=== PATIENT | female | born 1980 | race Caucasian/White ===

== ENCOUNTER 2016-06-15 12:59 | Emergency (ER) | payer MEDICARE, MEDICAID | END 2016-06-15 14:10 | disposition left against medical advice (07) | DX: R30.0 Dysuria (principal); Z53.21 Procedure and treatment not carried out due to patient leaving prior to being seen by health care provider ==

== ENCOUNTER 2016-06-15 14:36 | Emergency (ER) | payer MEDICARE, MEDICAID ==
[2016-06-15] MEDS ORDERED: NAPROXEN 250 MG TABLET PO STA (16:03)
[2016-06-15] MEDS ORDERED: metroNIDAZOLE 250 MG TABLET PO STA (16:03)
[2016-06-15] MEDS ORDERED: PHENAZOPYRIDINE 100 MG TABLET PO STA (16:03)
[2016-06-15] MEDS ORDERED: traMADol 50 MG TABLET PO STA (16:04)
[2016-06-15] MEDS ORDERED: traMADol 50 MG TABLET PO ONE (16:10)
[2016-06-15] MEDS ORDERED: NAPROXEN 250 MG TABLET PO ONE (16:11)
[2016-06-15] MEDS ORDERED: PHENAZOPYRIDINE 100 MG TABLET PO ONE (16:11)
[2016-06-15] MEDS ORDERED: metroNIDAZOLE 250 MG TABLET PO ONE (16:11)
== END 2016-06-15 16:19 | disposition home or self-care (01) ==
DX: R30.0 Dysuria (principal); N76.0 Acute vaginitis
CPT/HCPCS: 81001; 81025; 87086; 99281; 99283; A9270

== ENCOUNTER 2018-12-18 02:03 | Outpatient (CLI) | payer MEDICARE, MEDICAID | END 2018-12-18 02:04 | disposition critical access hospital (66) | LOC: EMS 02:03 | PROVIDERS: ATTEND Surgery | DX: R09.89 Other specified symptoms and signs involving the circulatory and respiratory systems (principal) | CPT/HCPCS: A0425; A0429 ==

== ENCOUNTER 2018-12-18 02:33 | Emergency (ER) | payer MEDICARE, MEDICAID ==
--- NOTE | 2018-12-18 02:32 | ED Physician Documentation ---
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 this resolved within 10-20 minutes, but as it resolved she developed a left chest and heart rhythm abnormality that she cannot quite describe. She says it felt as though her heart was "dropping", but she says it did not necessarily feel like skipped heart beats. Similarly, she says it wasn't chest pain/pressure/tightness, and tells me the only way she can describe the sensation is "like my heart was disconnected". She is asymptomatic at this time Review of Systems Cardiac: denies: Chest pain / pressure, Palpitations, Pedal edema Respiratory: reports: Reviewed and negative GI: reports: Reviewed and negative Musculoskeletal: denies: Neck pain, Back pain, Extremity pain PD PAST MEDICAL HISTORY - Past Medical History Past Medical History: No - Present Medications Home Medications: Ambulatory Orders Medication Instructions Recorded Confirmed Metronidazole [Flagyl] 500 mg PO BID #14 tablet 06/15/16 Naproxen [Naprosyn] 500 mg PO BID #20 tablet 06/15/16 Phenazopyridine [Pyridium] 200 mg PO TID PRN #15 tablet 06/15/16 - Allergies Allergies/Adverse Reactions: Allergies Allergy/AdvReac Type Severity Reaction Status Date / Time No Known Drug Allergies Allergy Verified 12/18/18 02:38 - Living Situation Living Arrangement: reports: Homeless (lives in a tent in [facility] for few years) - Social History Does the pt drink ETOH?: No PD ED PE NORMAL - Vitals Vital signs reviewed: Yes - General General: Alert and oriented X 3, No acute distress, Well developed/nourished - HEENT HEENT: Moist mucous membranes - Cardiac Cardiac: RRR, No murmur - Respiratory Respiratory: No respiratory distress, Clear bilaterally - Abdomen Abdomen: Soft, Non tender - Derm Derm: Normal color, Warm and dry - Extremities Extremities: No edema Results - Vitals Vitals: Vital Signs - 24 hr 12/18/18 12/18/18 12/18/18 02:35 03:33 04:33 Temperature 36.4 C L Heart Rate 90 88 76 Respiratory 16 19 18 Rate Blood Pressure 155/109 H 126/85 H 114/74 O2 Saturation 98 97 100 Oxygen O2 Source Room air - EKG (time done) No standard instances Rate: Rate (enter#) (76) Rhythm: NSR [place]: Normal Intervals: Normal [place] QRS: Normal Ischemia: Normal ST segments, T wave inversion (III, aVF), Other (flat T waves V3-V5) - Labs Labs: Laboratory Tests 12/18/18 12/18/18 12/18/18 02:45 02:45 02:45 WBC 8.6 RBC 4.90 Hgb 13.8 Hct 42.5 MCV 86.7 MCH 28.2 MCHC 32.5 RDW 12.6 Plt Count 298 MPV 10.6 Neut # (Auto) 5.7 Lymph # (Auto) 2.0 [place] # (Auto) 0.7 Eos # (Auto) 0.1 Baso # (Auto) 0.1 Absolute Nucleated RBC 0.00 Nucleated RBC % 0.0 Sodium 141 Potassium 3.7 Chloride 107 Carbon Dioxide 26 Anion Gap 8.0 BUN 17 Creatinine 0.7 Estimated GFR (MDRD) 94 Glucose 119 H Calcium 9.4 Total Bilirubin 0.8 AST 19 ALT 33 Alkaline Phosphatase 87 Troponin I High Sens < 2.3 L Total Protein 7.4 Albumin 4.2 Globulin 3.2 Albumin/Globulin Ratio 1.3 Lipase 81 H - Rads (name of study) chest xray Radiology: Prelim report reviewed, See rad report PD MEDICAL DECISION MAKING - ED course Complexity details: reviewed old records, reviewed results, re-evaluated patient, considered differential, d/w patient ED course: Patient remained asymptomatic during ED stay. She has not seen a physician in the outpatient setting in years. She has difficulty describing her symptoms but indicates there was an unusual sensation in her left chest which was preceded by LUE stiffness and "tightness", and thus cardiac-oriented ED workup was performed. Results are reassuring and her blood pressure, which was high on initial presentation, steadily improved without intervention and was 110s/70s prior to discharge. I encouraged her to return if she has recurrence of symptoms, and to establish with a local PMD. Departure - Departure Disposition: 01 Home, Self Care Clinical Impression: Palpitations Condition: Good Instructions: ED Palpitations Follow-Up: [facility] [Provider Group] Discharge Date/Time: 12/18/18 04:33
[2018-12-18 02:55] LABS: BASOPHILS # (AUTO) 0.1 10^3/uL (0.0-0.1); BASOPHILS % (AUTO) 0.7 %; EOSINOPHILS # (AUTO) 0.1 10^3/uL (0.0-0.7); EOSINOPHILS % (AUTO) 1.4 %; HGB - HEMOGLOBIN 13.8 g/dL (12.0-16.0); LYMPHOCYTES % (AUTO) 23.1 %; MEAN CORPUSCULAR HEMOGLOBIN 28.2 pg (27.0-31.0); MEAN CORPUSCULAR HGB CONC 32.5 g/dL (32.0-36.0); MEAN CORPUSCULAR VOLUME 86.7 fL (81.0-99.0); MEAN PLATELET VOLUME 10.6 fL (7.9-10.8); MONOCYTES # (AUTO) 0.7 10^3/uL (0.0-1.0); MONOCYTES % (AUTO) 8.3 %; NEUTROPHILS # (AUTO) 5.7 10^3/uL (1.5-6.6); PLT - PLATELET COUNT 298 10^3/uL (130-450); RED CELL DISTRIBUTION WIDTH 12.6 % (12.0-15.0); WHITE BLOOD COUNT 8.6 x10^3/uL (4.8-10.8)
[2018-12-18 03:07] LABS: ALBUMIN 4.2 g/dL (3.2-5.5); ALBUMIN/GLOBULIN RATIO 1.3 (1.0-2.2); BILIRUBIN,TOTAL 0.8 mg/dL (0.2-1.0); CALCIUM 9.4 mg/dL (8.5-10.3); CREATININE 0.7 mg/dL (0.4-1.0); TOTAL PROTEIN 7.4 g/dL (6.7-8.2)
--- NOTE | 2018-12-18 03:29 | XRAY Report ---
Reason: palpitations, chest discomfort Procedure Date: 12/18/2018 Accession Number: [id number] / [id number] Procedure: XR - Chest 2 View X-Ray CPT Code: 24056 FULL RESULT: EXAM: CHEST RADIOGRAPHY EXAM DATE: 12/18/2018 03:19 AM. CLINICAL HISTORY: Palpitations, chest discomfort. COMPARISON: None. TECHNIQUE: 2 views. FINDINGS: Lungs/Pleura: No focal opacities evident. No pleural effusion. No pneumothorax. Normal volumes. Mediastinum: Heart and mediastinal contours are unremarkable. Other: None. IMPRESSION: Normal 2-view chest radiography. [facility]
[2018-12-18 04:33] VITALS: BP 114/74
== END 2018-12-18 04:33 | disposition home or self-care (01) ==
LOC: EDUNIT# → EDBD → ED 02:33
DX: R00.2 Palpitations (principal); R07.89 Other chest pain; R03.0 Elevated blood-pressure reading, without diagnosis of hypertension; Z59.0 Homelessness
CPT/HCPCS: 36415; 71046; 80053; 83690; 84484; 85025; 93005; 99283; 99284